=== PATIENT | female | born 1990 | race Caucasian/White ===

== ENCOUNTER 2016-10-30 14:14 | Emergency (ER) | payer BC ==
[~2016-10-30] VITALS: Ht 170.2 cm; Wt 155.1 kg
[2016-10-30 15:37] LABS: MEAN CORPUSCULAR HEMOGLOBIN 22.8 pg (27.0-33.0); MEAN CORPUSCULAR HGB CONC 30.9 g/dl (32.0-36.5); MEAN CORPUSCULAR VOLUME 73.8 fl (80.0-96.0); RED CELL DISTRIBUTION WIDTH 15.8 % (11.5-14.5)
[2016-10-30 16:17] LABS: ALBUMIN 3.6 GM/DL (3.2-5.2); ALKALINE PHOSPHATASE 78 U/L (45-117); ALT/SGPT 42 U/L (12-78); ANION GAP 8 MEQ/L (8-16); AST/SGOT 17 U/L (15-37); BILIRUBIN,DIRECT < 0.1 MG/DL (0.0-0.2); BILIRUBIN,TOTAL 0.3 MG/DL (0.2-1.0); BLOOD UREA NITROGEN 8 MG/DL (7-18); CALCIUM LEVEL 9.1 MG/DL (8.5-10.1); CARBON DIOXIDE LEVEL 25 MEQ/L (21-32); CHLORIDE LEVEL 109 MEQ/L (98-107); CREATININE FOR GFR 0.77 MG/DL (0.55-1.02); GLOMERULAR FILTRATION RATE > 60.0 (>60); GLUCOSE, FASTING 80 MG/DL (70-105); POTASSIUM SERUM 3.7 MEQ/L (3.5-5.1); SODIUM LEVEL 142 MEQ/L (136-145); TOTAL PROTEIN 7.2 GM/DL (6.4-8.2)
[2016-10-30 17:29] LABS: METHADONE URINE NEGATIVE (NEGATIVE)
[2016-10-31 01:27] VITALS: BP 166/81
--- NOTE | 2016-10-31 07:25 | ECGEPIP ---
Stationary ECG Study [facility] - ED Test Date: 2016-10-30 Pat Name: GERI GALAVIZ Department: Room: - Gender: F Physical Therapy Supervisor: PB : 1990 Requested By: AURY Tatum Order Number: [id number] Reading MD: Ella Longoria Measurements Intervals [place] [facility] Rate: 72 P: 7 WY: 142 QRS: 60 QRSD: 101 T: 33 QT: 375 QTc: 410 Interpretive Statements SINUS RHYTHM NO PRIOR FOR COMPARISON Electronically Signed On 10-31-2016 7:25:09 EDT by Ella Longoria
== END 2016-10-31 01:34 ==
LOC: M ED 14:14
DX: F32.9 Major depressive disorder, single episode, unspecified (principal); F41.9 Anxiety disorder, unspecified; Z96.7 Presence of other bone and tendon implants
CPT/HCPCS: 36415; 80048; 80076; 80307; 84443; 85027; 93005; 99285; G0480

== ENCOUNTER 2017-03-02 00:14 | Emergency (ER) | payer BC ==
[~2017-03-02] VITALS: Ht 170.2 cm; Wt 141.0 kg
[2017-03-02] MEDS ORDERED: NS 1,000 ML IV ONE (00:45)
[2017-03-02] MEDS ORDERED: METOCLOPRAMIDE INJ 10MG/2ML VIAL (J2765) IV ONE (00:45)
[2017-03-02] MEDS ORDERED: METOCLOPRAMIDE INJ 10MG/2ML VIAL (J2765) As Ordered ONE (01:05)
[2017-03-02 01:11] LABS: BASO % 0.2 % (0.0-1.0); EOS # 0.1 10^3/uL (0.0-0.50); EOS % 0.4 % (0.0-3.0); IMMATURE GRANULOCYTE % 0.5 % (0-0); LYMPH # 0.8 10^3/uL (1.5-6.5); LYMPH % 4.2 % (24.0-44.0); MEAN CORPUSCULAR HEMOGLOBIN 22.1 pg (27.0-33.0); MEAN CORPUSCULAR HGB CONC 29.6 g/dl (32.0-36.5); MEAN CORPUSCULAR VOLUME 74.9 fl (80.0-96.0); MONO % 5.3 % (0.0-5.0); NEUTROPHILS # 16.3 10^3/uL (1.8-7.7); NEUTROPHILS % 89.4 % (36.0-66.0); PLATELET COUNT, AUTOMATED 390 10^3/uL (150-450); RED CELL DISTRIBUTION WIDTH 16.2 % (11.5-14.5); WHITE BLOOD COUNT 18.3 10^3/uL (4.0-10.0)
[2017-03-02] MEDS ORDERED: ONDANSETRON 4MG/2ML VIAL (J2405) IV ONE (01:30)
[2017-03-02 01:34] LABS: CONTROL LINE HCG INT CTR LINE PRESENT
[2017-03-02 01:42] LABS: ALBUMIN 3.5 GM/DL (3.2-5.2); ALBUMIN/GLOBULIN RATIO 0.95 (1.00-1.93); ALKALINE PHOSPHATASE 79 U/L (45-117); ALT/SGPT 32 U/L (12-78); AMYLASE 39 U/L (25-115); ANION GAP 8 MEQ/L (8-16); AST/SGOT 10 U/L (7-37); BILIRUBIN,DIRECT 0.1 MG/DL (0.0-0.2); BILIRUBIN,TOTAL 0.2 MG/DL (0.2-1.0); BLOOD UREA NITROGEN 10 MG/DL (7-18); CALCIUM LEVEL 8.7 MG/DL (8.5-10.1); CARBON DIOXIDE LEVEL 27 MEQ/L (21-32); CHLORIDE LEVEL 107 MEQ/L (98-107); CREATININE FOR GFR 0.71 MG/DL (0.55-1.02); GLOMERULAR FILTRATION RATE > 60.0 (>60); GLUCOSE, FASTING 155 MG/DL (70-105); POTASSIUM SERUM 3.8 MEQ/L (3.5-5.1); SODIUM LEVEL 142 MEQ/L (136-145); TOTAL PROTEIN 7.2 GM/DL (6.4-8.2)
[2017-03-02] MEDS ORDERED: ZOFR4TAB3 PO (02:43)
[2017-03-02 02:52] VITALS: BP 128/60
== END 2017-03-02 02:58 | disposition home or self-care (01) ==
LOC: M ED 00:14
DX: K52.9 Noninfective gastroenteritis and colitis, unspecified (principal)
CPT/HCPCS: 80048; 80076; 82150; 83690; 84703; 85025; 96374; 96375; 99284; J2405; J2765

== ENCOUNTER 2018-06-27 11:21 | Emergency (ER) | payer BC ==
[~2018-06-27] VITALS: Ht 170.2 cm; Wt 170.6 kg
[~2018-06-27 11:21] MED LIST: ZOFR4TAB14 PO
[2018-06-27] MEDS ORDERED: FLUO40CA PO (11:36)
[2018-06-27] MEDS ORDERED: IRON27TA2 PO (11:36)
[2018-06-27 12:13] LABS: BASO # 0.1 10^3/uL (0.0-0.2); BASO % 0.7 % (0.0-1.0); EOS # 0.1 10^3/uL (0.0-0.50); HEMATOCRIT 39.2 % (36.0-47.0); LYMPH # 2.8 10^3/uL (1.5-6.5); MEAN CORPUSCULAR HEMOGLOBIN 23.9 pg (27.0-33.0); MEAN CORPUSCULAR HGB CONC 30.6 g/dl (32.0-36.5); MEAN CORPUSCULAR VOLUME 78.1 fl (80.0-96.0); MONO # 0.7 10^3/uL (0.0-0.8); MONO % 5.2 % (0.0-5.0); NEUTROPHILS # 9.5 10^3/uL (1.8-7.7); NEUTROPHILS % 70.8 % (36.0-66.0); PLATELET COUNT, AUTOMATED 401 10^3/uL (150-450); RED BLOOD COUNT 5.02 10^6/uL (4.00-5.40); WHITE BLOOD COUNT 13.4 10^3/uL (4.0-10.0)
[2018-06-27 12:53] LABS: BLOOD UREA NITROGEN 12 MG/DL (7-18); CARBON DIOXIDE LEVEL 28 MEQ/L (21-32); CHLORIDE LEVEL 105 MEQ/L (98-107); CREATININE FOR GFR 0.75 MG/DL (0.55-1.30); GLOMERULAR FILTRATION RATE > 60.0 (>60); GLUCOSE, FASTING 94 MG/DL (70-100); POTASSIUM SERUM 4.3 MEQ/L (3.5-5.1); SODIUM LEVEL 140 MEQ/L (136-145)
[2018-06-27 13:12] LABS: HCG, SERUM QUALITATIVE NEGATIVE (NEGATIVE)
--- NOTE | 2018-06-27 15:18 | REP ---
PELVIC AND ENDOVAGINAL PROBE ULTRASOUND: 06/27/2018 Comparison: 11/16/2015. Clinical history: Dysfunctional uterine bleeding. Bleeding for 3 weeks. Irregular menses. Findings: Transabdominal and endovaginal probes were utilized. Bladder was 5.1 x 3.2 x 7.3 cm. Uterus is retroverted and better seen on the endovaginal probe. It measures 6.5 x 4.2 x 5.1 cm. Endometrial stripe is homogeneous and has a thickened appearance. It measures 9.9 mm in maximum. It has no fluid in the endometrial cavity or endocervical canal. I do not see uterine mass or contour abnormality. The right ovary is 4.3 x 3.4 x 2.9 cm and the left ovary is 3.5 x 3.4 x 2.7 cm. There are a few subcentimeter follicles in each ovary. Doppler tracing shows resistive index 0.61 on the right and 0.55 on the left, both normal with color images also showing normal blood flow. There is no mass in either ovary. There is a small amount of free fluid adjacent to the right adnexa only. Impression: 1. Retroverted uterus with endometrial stripe showing no evidence of mass and remaining homogeneous. Its maximum thickness 9.9 mm. No fluid within the endometrial cavity or endocervical canal. 2. Small amount of fluid adjacent to the right adnexa but both ovaries with small subcentimeter follicles and no mass, cyst or evidence for torsion. There is a normal Doppler tracing and color flow to each. Electronically Signed by Chacho Perez MD 06/27/2018 09:57 P
[2018-06-27 15:46] VITALS: BP 125/58
[2018-06-27] MEDS ORDERED: MICR1TAB16 PO (15:58)
== END 2018-06-27 16:04 | disposition home or self-care (01) ==
LOC: M ED 11:21
DX: N93.8 Other specified abnormal uterine and vaginal bleeding (principal); F32.9 Major depressive disorder, single episode, unspecified; Z79.899 Other long term (current) drug therapy

== ENCOUNTER → 2018-08-07 | Outpatient (REF) | payer BC ==
[~2018-08-07] MED LIST changes: +FLUO40CA PO; +IRON27TA2 PO; +MICR1TAB16 PO
== END ==
LOC: M LAB REF 09:00
PROVIDERS: ATTEND Advanced Practice Midwife
DX: Z12.4 Encounter for screening for malignant neoplasm of cervix (principal)

== ENCOUNTER → 2019-03-19 | Outpatient (REF) | payer BC ==
[2019-03-19 20:02] LABS: AMORPHOUS SEDIMENT MODERATE (NEGATIVE); APPEARANCE, URINE TURBID (CLEAR); BACTERIA, URINE AUTO NEGATIVE (NEGATIVE); BILIRUBIN, URINE AUTO NEGATIVE (NEGATIVE); BLOOD, URINE BLOOD NEGATIVE (NEGATIVE); COLOR, URINE YELLOW (YELLOW); GLUCOSE, URINE (UA) AUTO NEGATIVE (NEGATIVE); KETONE, URINE AUTO NEGATIVE (NEGATIVE); LEUKOCYTE ESTERASE, URINE AUTO TRACE (NEGATIVE); NITRITE, URINE AUTO NEGATIVE (NEGATIVE); PROTEIN, URINE AUTO NEGATIVE (NEGATIVE); RBC, URINE AUTO 4 /HPF (0-3); SPECIFIC GRAVITY URINE AUTO 1.027 (1.002-1.035); SQUAMOUS EPITHELIAL CELL UR AU 0 /HPF (0-6); UROBILINOGEN, URINE AUTO 0.2 mg/dL (0.0-2.0); WBC, URINE AUTO 2 /HPF (0-3)
[2019-03-19 20:05] LABS: BASO # 0.1 10^3/uL (0.0-0.2); EOS # 0.2 10^3/uL (0.0-0.5); EOS % 1.5 % (0.0-3.0); HEMATOCRIT 37.2 % (36.0-47.0); HEMOGLOBIN 10.4 g/dl (12.0-15.5); LYMPH # 2.4 10^3/uL (1.5-5.0); LYMPH % 23.9 % (24.0-44.0); MEAN CORPUSCULAR HEMOGLOBIN 19.8 pg (27.0-33.0); MEAN CORPUSCULAR VOLUME 70.7 fl (80.0-96.0); MONO # 0.6 10^3/uL (0.0-0.8); MONO % 5.6 % (0.0-5.0); NEUTROPHILS # 6.7 10^3/uL (1.5-8.5); NEUTROPHILS % 67.4 % (36.0-66.0); PLATELET COUNT, AUTOMATED 439 10^3/uL (150-450); RED BLOOD COUNT 5.26 10^6/uL (4.00-5.40)
[2019-03-19 20:20] LABS: ALBUMIN 3.5 GM/DL (3.2-5.2); ALT/SGPT 26 U/L (12-78); BILIRUBIN,TOTAL 0.2 MG/DL (0.2-1.0); BLOOD UREA NITROGEN 12 MG/DL (7-18); CALCIUM LEVEL 8.6 MG/DL (8.5-10.1); CARBON DIOXIDE LEVEL 27 MEQ/L (21-32); CHLORIDE LEVEL 107 MEQ/L (98-107); CHOLESTEROL LEVEL 163 MG/DL (<200); CHOLESTEROL RISK RATIO 4.794 (<5); CREATININE FOR GFR 0.56 MG/DL (0.55-1.30); FREE T4 0.87 NG/DL (0.76-1.46); GLOMERULAR FILTRATION RATE > 60.0 (>60); GLUCOSE, FASTING 98 MG/DL (70-100); HDL CHOLESTEROL 34 MG/DL (>40); LDL CHOLESTEROL 62 MG/DL (<100); NON-HDL-C 129 MG/DL; POTASSIUM SERUM 3.8 MEQ/L (3.5-5.1); SODIUM LEVEL 141 MEQ/L (136-145); TOTAL PROTEIN 7.3 GM/DL (6.4-8.2); TRIGLYCERIDES LEVEL 335 MG/DL (<150)
[2019-03-19 20:37] LABS: HEMOGLOBIN A1c 5.2 %
[2019-03-19 20:44] LABS: TOTAL 25(OH) VITAMIN D 16.2 NG/ML (30.0-100.0)
== END ==
LOC: M LAB REF 19:02
PROVIDERS: ATTEND Nurse Practitioner Family
DX: Z13.9 Encounter for screening, unspecified (principal)

== ENCOUNTER → 2019-05-30 | Outpatient (REF) | payer BC ==
[2019-05-30 18:01] LABS: BASO # 0.1 10^3/uL (0.0-0.2); EOS # 0.2 10^3/uL (0.0-0.5); EOS % 1.8 % (0.0-3.0); HEMATOCRIT 37.6 % (36.0-47.0); HEMOGLOBIN 10.7 g/dl (12.0-15.5); LYMPH % 23.2 % (24.0-44.0); MEAN CORPUSCULAR HEMOGLOBIN 21.6 pg (27.0-33.0); MEAN CORPUSCULAR HGB CONC 28.5 g/dl (32.0-36.5); MEAN CORPUSCULAR VOLUME 75.8 fl (80.0-96.0); MONO # 0.4 10^3/uL (0.0-0.8); MONO % 4.6 % (0.0-5.0); NEUTROPHILS # 5.8 10^3/uL (1.5-8.5); NEUTROPHILS % 69.3 % (36.0-66.0); PLATELET COUNT, AUTOMATED 351 10^3/uL (150-450); RED BLOOD COUNT 4.96 10^6/uL (4.00-5.40); WHITE BLOOD COUNT 8.4 10^3/uL (4.0-10.0)
[2019-05-30 18:20] LABS: FOLATE 16.5 NG/ML
== END ==
LOC: M LAB REF 16:45
PROVIDERS: ATTEND Nurse Practitioner Family
DX: Z13.9 Encounter for screening, unspecified (principal)

== ENCOUNTER → 2019-06-02 | Outpatient (REF) | payer BC ==
[2019-06-02 12:23] LABS: INFLUENZA A AMPLIFICATION NEGATIVE (NEGATIVE); INFLUENZA B AMPLIFICATION NEGATIVE (NEGATIVE)
== END ==
LOC: M LAB REF 10:25
PROVIDERS: ATTEND Physician Assistant Medical
DX: R50.9 Fever, unspecified (principal)

== ENCOUNTER → 2019-09-03 | Outpatient (CLI) | payer BC ==
[2019-09-03 09:35] LABS: BASO # 0.1 10^3/uL (0.0-0.2); BASO % 0.7 % (0.0-1.0); EOS # 0.2 10^3/uL (0.0-0.5); EOS % 1.9 % (0.0-3.0); HEMOGLOBIN 14.2 g/dl (12.0-15.5); LYMPH % 20.8 % (24.0-44.0); MEAN CORPUSCULAR HEMOGLOBIN 24.6 pg (27.0-33.0); MEAN CORPUSCULAR HGB CONC 31.6 g/dl (32.0-36.5); MONO # 0.5 10^3/uL (0.0-0.8); MONO % 5.1 % (0.0-5.0); NEUTROPHILS % 71.1 % (36.0-66.0); PLATELET COUNT, AUTOMATED 311 10^3/uL (150-450); RED BLOOD COUNT 5.77 10^6/uL (4.00-5.40); WHITE BLOOD COUNT 9.8 10^3/uL (4.0-10.0)
[2019-09-03 09:57] LABS: ALBUMIN 3.3 GM/DL (3.2-5.2); ALT/SGPT 23 U/L (12-78); BILIRUBIN,TOTAL 0.3 MG/DL (0.2-1.0); BLOOD UREA NITROGEN 14 MG/DL (7-18); CALCIUM LEVEL 8.8 MG/DL (8.5-10.1); CARBON DIOXIDE LEVEL 26 MEQ/L (21-32); CHLORIDE LEVEL 106 MEQ/L (98-107); CREATININE FOR GFR 0.62 MG/DL (0.55-1.30); GLOMERULAR FILTRATION RATE > 60.0 (>60); GLUCOSE, FASTING 89 MG/DL (70-100); POTASSIUM SERUM 4.1 MEQ/L (3.5-5.1); SODIUM LEVEL 140 MEQ/L (136-145)
== END ==
LOC: M LAB 08:01
PROVIDERS: ATTEND Nurse Practitioner Family
DX: D50.8 Other iron deficiency anemias (principal)

== ENCOUNTER → 2020-02-17 | Outpatient (REF) | payer BC ==
[2020-02-17 17:13] LABS: BASO # 0.1 10^3/uL (0.0-0.2); BASO % 1.1 % (0.0-1.0); EOS # 0.2 10^3/uL (0.0-0.5); EOS % 1.8 % (0.0-3.0); HEMATOCRIT 45.1 % (36.0-47.0); LYMPH # 2.8 10^3/uL (1.5-5.0); LYMPH % 26.1 % (24.0-44.0); MEAN CORPUSCULAR HEMOGLOBIN 25.3 pg (27.0-33.0); MEAN CORPUSCULAR VOLUME 81.4 fl (80.0-96.0); MONO # 0.8 10^3/uL (0.0-0.8); MONO % 7.1 % (0.0-5.0); NEUTROPHILS # 6.8 10^3/uL (1.5-8.5); NEUTROPHILS % 63.3 % (36.0-66.0); PLATELET COUNT, AUTOMATED 350 10^3/uL (150-450); RED BLOOD COUNT 5.54 10^6/uL (4.00-5.40); WHITE BLOOD COUNT 10.8 10^3/uL (4.0-10.0)
[2020-02-17 18:11] LABS: ALBUMIN 3.3 GM/DL (3.2-5.2); ALT/SGPT 25 U/L (12-78); BILIRUBIN,TOTAL 0.2 MG/DL (0.2-1.0); BLOOD UREA NITROGEN 13 MG/DL (7-18); CALCIUM LEVEL 8.7 MG/DL (8.5-10.1); CARBON DIOXIDE LEVEL 29 MEQ/L (21-32); CHLORIDE LEVEL 108 MEQ/L (98-107); CREATININE FOR GFR 0.93 MG/DL (0.55-1.30); FERRITIN 21 NG/ML (8-252); FREE T4 0.83 NG/DL (0.76-1.46); GLOMERULAR FILTRATION RATE > 60.0 (>60); GLUCOSE, FASTING 80 MG/DL (70-100); IRON (FE) 51 UG/DL (50-170); POTASSIUM SERUM 4.2 MEQ/L (3.5-5.1); SODIUM LEVEL 141 MEQ/L (136-145)
== END ==
LOC: M SFHCPLAZ 14:32
PROVIDERS: ATTEND Physician Assistant Medical
DX: D50.0 Iron deficiency anemia secondary to blood loss (chronic) (principal); F32.9 Major depressive disorder, single episode, unspecified